=== PATIENT | male | born 1950 | race Caucasian/White ===

== ENCOUNTER 2022-09-09 10:05 | Outpatient (CLI) | payer MEDICARE ==
[2022-09-09 12:01] LABS: INR-International Normal Ratio 1.1; Prothrombin Time 11.9 sec (9.5-12.1)
== END 2022-09-09 10:06 | disposition home or self-care (01) ==
LOC: LABBT 10:05
PROVIDERS: ATTEND Orthopaedic Surgery
DX: Z01.818 Encounter for other preprocedural examination (principal); M17.12 Unilateral primary osteoarthritis, left knee
CPT/HCPCS: 85610; 87081; 93005; 93010

== ENCOUNTER 2022-09-14 06:27 | Observation (INO) | payer MEDICARE ==
[2022-09-09 10:41] VITALS: BMI 22.3
[2022-09-14] MEDS ORDERED: Sodium Chloride 0.9% 100 ML ONE ×2 (07:55→09:21)
[2022-09-14] MEDS ORDERED: Tranexamic Acid 1,000 MG/10 ML VIAL ONE (07:55)
[2022-09-14] MEDS ORDERED: Vancomycin (BATCH) 1.5 GRAM/300 ML BAG ONE (07:55)
[2022-09-14] MEDS ORDERED: fentaNYL 50 mcg/mL 1 mL Vial ONE (07:59)
[2022-09-14] MEDS ORDERED: Bupivacaine PF 0.5% 30 ML VIAL ONE ×2 (07:59→09:31)
[2022-09-14] MEDS ORDERED: Midazolam HCl 2 mg/2 ml Vial ONE (07:59)
[2022-09-14] MEDS ORDERED: Bupivacaine HCl 0.5%/Epinephrine 1:200,000/PF 30 ml Vial ONE (08:40)
[2022-09-14] MEDS ORDERED: fentaNYL 50 mcg/mL 1 mL Vial SLOW IVP PRN (08:51)
[2022-09-14] MEDS ORDERED: Promethazine HCl 25 MG/ML VIAL IM PRN ×2 (09:00→09:23)
[2022-09-14] MEDS ORDERED: Ondansetron PF 4 MG/2 ML Vial IVP PRN ×2 (09:00→09:23)
[2022-09-14] MEDS ORDERED: traMADol HCl 50 MG TAB PO PRN ×2 (09:00)
[2022-09-14] MEDS ORDERED: Zolpidem Tartrate 5 MG TAB PO PRN ×2 (09:00→09:23)
[2022-09-14] MEDS ORDERED: Ropivacaine 0.2% 550 ML 550 ML NERVE BLCK SCH (09:00)
[2022-09-14] MEDS ORDERED: HYDROcodone/Acetaminophen 10/325 mg Tablet PO PRN ×2 (09:00)
[2022-09-14] MEDS ORDERED: CEFAZOLIN 2 GM VIAL ONE (09:21)
[2022-09-14] MEDS ORDERED: Acetaminophen 325 MG TAB PO PRN (09:23)
[2022-09-14] MEDS ORDERED: diphenhydrAMINE 25 MG CAP PO PRN (09:23)
[2022-09-14] MEDS ORDERED: Ketorolac Tromethamine 30 MG/ML VIAL ONE (09:46)
[2022-09-14] MEDS ORDERED: Dexamethasone 20 MG/5 ML VIAL ONE (09:46)
[2022-09-14] MEDS ORDERED: PROPOFOL 200 MG/20 ML VIAL ONE ×2 (09:46)
[2022-09-14] MEDS ORDERED: Ondansetron PF 4 MG/2 ML Vial ONE (09:46)
[2022-09-14] MEDS ORDERED: fentaNYL PF 100 MCG/2 ML SYRINGE ONE (09:54)
[2022-09-14] MEDS: Sodium Chloride 0.9% 1,000 ML IV SCH (12:42)
[2022-09-14] MEDS: Ketorolac Tromethamine 30 MG/ML VIAL IVP SCH ×2 (12:42→17:12)
[2022-09-14] MEDS: CEFAZOLIN 2 GM in Sodium Chloride 0.9% 100 ML IVPB SCH (17:12)
[2022-09-14] MEDS: Aspirin 81 mg Enteric Coated Tablet PO SCH (20:58)
[2022-09-14] MEDS ORDERED: Aspirin Chewable 81 MG TAB PO SCH (21:00)
[2022-09-14] MEDS ORDERED: Atorvastatin Calcium 10 MG TAB PO SCH (21:00)
[2022-09-15] MEDS: Ketorolac Tromethamine 30 MG/ML VIAL IVP SCH ×3 (01:05→12:55)
[2022-09-15] MEDS: CEFAZOLIN 2 GM in Sodium Chloride 0.9% 100 ML IVPB SCH (01:06)
[2022-09-15] MEDS: Sodium Chloride 0.9% 1,000 ML IV SCH ×2 (05:20→05:22)
[2022-09-15 06:00] LABS: Mean Corpuscular Hemoglobin 31.4 pg (27.0-31.0); Mean Corpuscular Volume 95.2 fl (78.0-98.0); Mean Platelet Volume 10.8 fL (7.4-10.4); Platelet Count 155 10x3/uL (130-400); RBC Distribution Width 13.4 % (11.5-14.5); Red Blood Cell (RBC) Count 4.14 mill/uL (4.70-6.10); White Blood Cell (WBC) Count 13.2 10x3/uL (4.8-10.8)
[2022-09-15] MEDS ORDERED: Ferrous Gluconate 324 MG TAB PO SCH (08:00)
[2022-09-15] MEDS ORDERED: Losartan 25 MG TAB PO SCH (09:00)
[2022-09-15] MEDS ORDERED: Multivitamin W/ Minerals 1 TAB PO SCH (09:00)
[2022-09-15] MEDS ORDERED: Senokot S 8.6-50 MG TAB PO SCH (09:00)
[2022-09-15] MEDS ORDERED: Metamucil PACK PO SCH (09:00)
[2022-09-15] MEDS: Aspirin 81 mg Enteric Coated Tablet PO SCH (09:13)
[2022-09-15 12:24] VITALS: BP 144/87; TEMP 97.8
[2022-09-17] MEDS ORDERED: CeleCOXIB 100 MG CAP PO SCH (09:00)
== END 2022-09-15 16:13 | disposition home or self-care (01) ==
LOC: SDC 06:27 → SURG A 12:24 → SDC 18:48 → SURG A 18:49
PROVIDERS: ADMIT Orthopaedic Surgery; ATTEND Orthopaedic Surgery
PROC: 0SRD0J9 Replacement of Left Knee Joint with Synthetic Substitute, Cemented, Open Approach (ICD-10-PCS; principal; 2022-09-14)
DX: M17.0 Bilateral primary osteoarthritis of knee (principal); I10 Essential (primary) hypertension; K21.9 Gastro-esophageal reflux disease without esophagitis; E78.5 Hyperlipidemia, unspecified; Z66 Do not resuscitate; Z79.1 Long term (current) use of non-steroidal anti-inflammatories (NSAID); Z79.82 Long term (current) use of aspirin; Z79.899 Other long term (current) drug therapy
CPT/HCPCS: 20985; 27447; 73560; 85027; 97110 ×2; 97116 ×2; 97530 ×2; A4306; C1713; C1776; J3010; J3370; 36415; 96365; 96375; 96376; G0378; J1100; J1885; J2250; J2405; J2704; J2795; J3490; J7050; S0020

== ENCOUNTER 2023-02-18 11:13 | Outpatient (CLI) | payer MEDICARE ==
[2023-02-18 12:48] LABS: #Basophils 0.1 10x3/uL (0.0-0.2); #Monocytes 0.8 10x3/uL (0.0-1.1); #Neutrophils 5.7 10x3/uL (1.5-8.4); %Basophils 0.6 % (0.0-2.0); %Eosinophils 0.5 % (0.0-6.0); %Lymphocytes 15.5 % (18.0-47.0); %Monocytes 9.7 % (0.0-10.0); %Neutrophils 73.2 % (40.0-75.0); Hematocrit 48.8 % (38.8-50.0); Hemoglobin 16.2 g/dL (13.5-17.5); Mean Corpuscular HGB CONC 33.2 g/dL (32.0-36.0); Mean Corpuscular Volume 93.3 fl (81.2-95.1); Mean Platelet Volume 11.1 fl (7.4-10.4); Platelet Count 181 10x3/uL (150-450); RBC Distribution Width 13.9 % (11.5-14.5); Red Blood Cell (RBC) Count 5.23 10x6/uL (4.32-5.72); White Blood Cell (WBC) Count 7.9 10x3/uL (3.5-10.5)
[2023-02-18 12:59] LABS: Prothrombin Time 10.9 sec (9.5-12.1)
[2023-02-18 13:06] LABS: Anion Gap 17 mmol/L (10-20); BUN (Urea Nitrogen) 11 mg/dL (8.4-25.7); Calc. Creatinine Clearance 0 mL/min (70-130); Calcium 9.7 mg/dL (7.8-10.44); Carbon Dioxide 23 mmol/L (23-31); Chloride 108 mmol/L (98-107); Estimated GFR 83; Glucose 103 mg/dL (83-110); Potassium 4.6 mmol/L (3.5-5.1); Sodium 143 mmol/L (136-145)
== END 2023-02-18 11:14 | disposition home or self-care (01) ==
LOC: LABBT 11:13
PROVIDERS: ATTEND Orthopaedic Surgery
DX: Z01.812 Encounter for preprocedural laboratory examination (principal); M17.11 Unilateral primary osteoarthritis, right knee
CPT/HCPCS: 80048; 85025; 85610; 87081

== ENCOUNTER 2023-02-21 05:37 | Observation (INO) | payer MEDICARE ==
[2023-02-18 12:17] VITALS: BMI 34.8
[2023-02-21] MEDS ORDERED: Tranexamic Acid 1,000 MG/10 ML VIAL ONE (06:04)
[2023-02-21] MEDS ORDERED: Sodium Chloride 0.9% 100 ML ONE ×2 (06:04→06:46)
[2023-02-21] MEDS ORDERED: Vancomycin (BATCH) 1.5 GRAM/300 ML BAG ONE (06:04)
[2023-02-21] MEDS ORDERED: Bupivacaine PF 0.5% 30 ML VIAL ONE ×2 (06:20→06:22)
[2023-02-21] MEDS ORDERED: fentaNYL 50 mcg/mL 1 mL Vial ONE ×7 (06:21→10:25)
[2023-02-21] MEDS ORDERED: Midazolam HCl 2 mg/2 ml Vial ONE (06:21)
[2023-02-21] MEDS ORDERED: Ondansetron PF 4 MG/2 ML Vial ONE (06:41)
[2023-02-21] MEDS ORDERED: Ketorolac Tromethamine 30 MG/ML VIAL ONE (06:41)
[2023-02-21] MEDS ORDERED: Bupivacaine HCl 0.5%/Epinephrine 1:200,000/PF 30 ml Vial ONE (06:41)
[2023-02-21] MEDS ORDERED: Lidocaine 1% PF 5 ML VIAL ONE (06:41)
[2023-02-21] MEDS ORDERED: Dexamethasone 20 MG/5 ML VIAL ONE (06:41)
[2023-02-21] MEDS ORDERED: PROPOFOL 200 MG/20 ML VIAL ONE (06:41)
[2023-02-21] MEDS ORDERED: CEFAZOLIN 2 GM VIAL ONE (06:46)
[2023-02-21] MEDS ORDERED: Ondansetron PF 4 MG/2 ML Vial IVP PRN ×2 (06:55→08:15)
[2023-02-21] MEDS ORDERED: diphenhydrAMINE 25 MG CAP PO PRN (06:55)
[2023-02-21] MEDS ORDERED: HYDROcodone/Acetaminophen 10/325 mg Tablet PO PRN ×3 (06:55→08:15)
[2023-02-21] MEDS ORDERED: Promethazine HCl 25 MG/ML VIAL IM PRN ×3 (06:55→08:15)
[2023-02-21] MEDS ORDERED: fentaNYL 50 mcg/mL 1 mL Vial SLOW IVP PRN ×2 (06:55→08:09)
[2023-02-21] MEDS ORDERED: Acetaminophen 325 MG TAB PO PRN (06:55)
[2023-02-21] MEDS ORDERED: Zolpidem Tartrate 5 MG TAB PO PRN ×2 (06:55→08:15)
[2023-02-21] MEDS ORDERED: Sevoflurane 250 ML INH ANEST BOTTLE ONE (07:08)
[2023-02-21] MEDS ORDERED: Famotidine/PF 20 mg/2ml Vial ONE (07:08)
[2023-02-21] MEDS ORDERED: Ondansetron HCl/PF 4 MG/2 ML Vial IVP PRN (08:01)
[2023-02-21] MEDS ORDERED: Meperidine HCl/PF 25 MG/ML VIAL SLOW IVP PRN (08:01)
[2023-02-21] MEDS ORDERED: HYDROmorphone 2 MG/ML VIAL SLOW IVP PRN (08:01)
[2023-02-21] MEDS ORDERED: Ropivacaine 0.2% 550 ML 550 ML NERVE BLCK SCH (08:15)
[2023-02-21] MEDS ORDERED: traMADol HCl 50 MG TAB PO PRN ×2 (08:15)
[2023-02-21] MEDS: Aspirin 81 mg Enteric Coated Tablet PO SCH ×2 (11:58→20:34)
[2023-02-21] MEDS: Losartan 25 MG TAB PO SCH (11:58)
[2023-02-21] MEDS: Metamucil PACK PO SCH (11:59)
[2023-02-21] MEDS: Ketorolac Tromethamine 30 MG/ML VIAL IVP SCH ×3 (12:47→23:39)
[2023-02-21] MEDS: HYDROcodone/Acetaminophen 10/325 mg Tablet PO PRN ×2 (12:48→18:24)
[2023-02-21] MEDS ORDERED: Ketorolac Tromethamine 30 MG/ML VIAL IVP SCH (14:00)
[2023-02-21] MEDS: CEFAZOLIN 2 GM in Sodium Chloride 0.9% 100 ML IVPB SCH ×2 (16:05→23:38)
[2023-02-21] MEDS: Sodium Chloride 0.9% 1,000 ML IV SCH (18:36)
[2023-02-21] MEDS ORDERED: Atorvastatin Calcium 10 MG TAB PO SCH (21:00)
[2023-02-21] MEDS ORDERED: Aspirin Chewable 81 MG TAB PO SCH (21:00)
[2023-02-22] MEDS: Sodium Chloride 0.9% 1,000 ML IV SCH (04:43)
[2023-02-22 05:00] LABS: Hematocrit 41.3 % (42.0-52.0); Hemoglobin 13.6 g/dL (14.0-18.0); Mean Corpuscular HGB CONC 32.9 g/dL (32.0-36.0); Mean Corpuscular Hemoglobin 30.8 pg (27.0-31.0); Mean Corpuscular Volume 93.7 fl (78.0-98.0); Mean Platelet Volume 10.8 fL (7.4-10.4); Platelet Count 150 10x3/uL (130-400); RBC Distribution Width 13.6 % (11.5-14.5); Red Blood Cell (RBC) Count 4.41 mill/uL (4.70-6.10); White Blood Cell (WBC) Count 14.8 10x3/uL (4.8-10.8)
[2023-02-22] MEDS: Ketorolac Tromethamine 30 MG/ML VIAL IVP SCH ×2 (05:14→12:03)
[2023-02-22] MEDS: Metamucil PACK PO SCH (08:45)
[2023-02-22] MEDS: Aspirin 81 mg Enteric Coated Tablet PO SCH (08:45)
[2023-02-22] MEDS: Losartan 25 MG TAB PO SCH (08:45)
[2023-02-22] MEDS ORDERED: Multivitamin W/ Minerals 1 TAB PO SCH (09:00)
[2023-02-22] MEDS ORDERED: Ferrous Gluconate 324 MG TAB PO SCH (09:00)
[2023-02-22] MEDS ORDERED: Senokot S 8.6-50 MG TAB PO SCH (09:00)
[2023-02-22 11:44] VITALS: BP 146/79; TEMP 98.6
[2023-02-24] MEDS ORDERED: CeleCOXIB 100 MG CAP PO SCH (09:00)
== END 2023-02-22 12:07 | disposition home or self-care (01) ==
LOC: SDC 05:37 → SURG A 10:50 → SDC 11:57 → SURG A 11:57
PROVIDERS: ADMIT Orthopaedic Surgery; ATTEND Orthopaedic Surgery
PROC: 0SRC0JZ Replacement of Right Knee Joint with Synthetic Substitute, Open Approach (ICD-10-PCS; principal; 2023-02-21)
DX: M17.11 Unilateral primary osteoarthritis, right knee (principal); I10 Essential (primary) hypertension; E78.5 Hyperlipidemia, unspecified; Z79.82 Long term (current) use of aspirin; Z79.899 Other long term (current) drug therapy; Z96.652 Presence of left artificial knee joint
CPT/HCPCS: 27447; 73560; 85027; 97110 ×2; 97116 ×2; 97530; A4306; C1776; J3010; J3370; 36415; J1100; J1885; J2250; J2405; J2704; J2795; J3490; S0020; S0028